=== PATIENT | male | born 1960 | race Caucasian/White ===

== ENCOUNTER 2017-06-12 22:27 | Emergency (ER) | payer MEDICAID ==
[2017-06-12 23:43] LABS: BASOPHIL % 0.3 % (0-2)
[2017-06-12 23:46] LABS: PLATELET COUNT 405 x10^3mcL (130-400); RED CELL DISTRIBUTION WIDTH 14.6 % (11.5-14.5)
[2017-06-12 23:48] LABS: CALCIUM 8.8 mg/dL (8.5-10.1); CARBON DIOXIDE 28.2 mmol/L (21-32); CHLORIDE SERUM 102 mmol/L (98-107); CREATININE SERUM 1.1 mg/dL (0.7-1.3); GFR1 > 60 mL/min; GLUCOSE SERUM 161 mg/dL (74-106); POTASSIUM SERUM 3.6 mmol/L (3.5-5.1); SODIUM SERUM 140 mmol/L (136-145)
[2017-06-12 23:52] LABS: ALBUMIN 3.3 g/dL (3.4-5.0); ALKALINE PHOSPHATASE 104 U/L (46-116); ALT/SGPT 43 U/L (16-63); AMYLASE 82 U/L (25-115); AST/SGOT 23 U/L (15-37); BILIRUBIN TOTAL 0.1 mg/dL (0.20-1.00); LIPASE 156 IU/L (73-393); TOTAL PROTEIN, SERUM 7.4 g/dL (6.4-8.2)
[2017-06-13 01:25] VITALS: BP 114/64
== END 2017-06-13 01:25 | disposition home or self-care (01) ==
LOC: ED 22:27
PROVIDERS: Emergency Medicine
DX: R10.12 Left upper quadrant pain (principal); I10 Essential (primary) hypertension; E78.00 Pure hypercholesterolemia, unspecified; Z88.0 Allergy status to penicillin
CPT/HCPCS: 83880; J1885

== ENCOUNTER 2017-09-17 06:44 | Emergency (ER) | payer MEDICAID ==
[~2017-09-17] VITALS: Ht 177.8 cm; Wt 110.7 kg
[2017-09-17 06:45] VITALS: Ht 177.8 cm; Wt 110.7 kg
[2017-09-17 10:12] VITALS: BP 148/90
== END 2017-09-17 10:12 | disposition home or self-care (01) ==
LOC: ED 06:44
DX: K12.2 Cellulitis and abscess of mouth (principal); E78.00 Pure hypercholesterolemia, unspecified; J02.9 Acute pharyngitis, unspecified

== ENCOUNTER 2018-11-02 06:02 | Emergency (ER) | payer MEDICAID ==
[~2018-11-02] VITALS: Ht 177.8 cm; Wt 101.8 kg
[2018-11-02 06:09] VITALS: Ht 177.8 cm; Wt 101.8 kg
[2018-11-02 07:06] LABS: BASOPHIL % 0.7 % (0-2); PLATELET COUNT 349 x10^3mcL (130-400)
[2018-11-02 07:27] LABS: CALCIUM 8.8 mg/dL (8.5-10.1); CARBON DIOXIDE 27.5 mmol/L (21-32); CHLORIDE SERUM 106 mmol/L (98-107); CREATININE SERUM 1.3 mg/dL (0.7-1.3); GFR1 > 60 mL/min; GLUCOSE SERUM 112 mg/dL (74-106); SODIUM SERUM 143 mmol/L (136-145)
[2018-11-02 07:35] LABS: T3 TOTAL 1.33 ng/mL
[2018-11-02 07:41] LABS: CK-MB 0.6 ng/mL (0-3.6); FREE T4 0.91 ng/dL (0.76-1.46); FREE THYROXINE INDEX 2.7 ug/dL (1.4-4.5); T4(THYROXINE) 8.1 ug/dL (4.7-13.3)
[2018-11-02 07:42] LABS: ALBUMIN 3.5 g/dL (3.4-5.0); ALKALINE PHOSPHATASE 99 U/L (46-116); ALT/SGPT 31 U/L (16-63); AST/SGOT 18 U/L (15-37); BILIRUBIN TOTAL 0.1 mg/dL (0.20-1.00); C REACTIVE PROTEIN 0.4 mg/dL (<=0.9)
[2018-11-02 09:11] LABS: ERYTHROCYTE SED RATE 18 mm/hr (0-20)
[2018-11-02 09:56] VITALS: BP 125/65
== END 2018-11-02 09:56 | disposition home or self-care (01) ==
LOC: ED 06:02
PROVIDERS: Specialist
DX: J10.1 Influenza due to other identified influenza virus with other respiratory manifestations (principal); E86.0 Dehydration; J20.9 Acute bronchitis, unspecified; I10 Essential (primary) hypertension; E78.00 Pure hypercholesterolemia, unspecified; Z88.0 Allergy status to penicillin
CPT/HCPCS: 36600; 84439; 87804; J0456; J2930; J7030; J7613; J7644; Q0092

== ENCOUNTER 2018-11-07 01:50 | Emergency (ER) | payer MEDICAID ==
[~2018-11-07] VITALS: Ht 177.8 cm; Wt 102.1 kg
[2018-11-07 01:58] VITALS: Ht 177.8 cm; Wt 102.1 kg
[2018-11-07 04:42] VITALS: BP 110/77
== END 2018-11-07 04:47 | disposition home or self-care (01) ==
LOC: ED 01:50
DX: J20.9 Acute bronchitis, unspecified (principal); I10 Essential (primary) hypertension; E78.00 Pure hypercholesterolemia, unspecified; Z88.0 Allergy status to penicillin
CPT/HCPCS: 87804; J2930; J7620; Q0092

== ENCOUNTER 2018-12-28 04:05 | Inpatient (IN) | payer MEDICAID ==
[~2018-12-28] VITALS: Ht 177.8 cm; Wt 102.7 kg
[2018-12-28 04:07] VITALS: Ht 177.8 cm; Wt 102.7 kg
[2018-12-28 04:39] LABS: BASOPHIL % 0.7 % (0-2); PLATELET COUNT 355 x10^3mcL (130-400)
[2018-12-28 04:40] LABS: RED CELL DISTRIBUTION WIDTH 14.6 % (11.5-14.5)
[2018-12-28 05:13] LABS: microscopic required? NO
[2018-12-28 05:13] LABS: CARBON DIOXIDE 28.8 mmol/L (21-32); CHLORIDE SERUM 103 mmol/L (98-107); CREATININE SERUM 1.1 mg/dL (0.7-1.3); GFR1 > 60 mL/min; GLUCOSE SERUM 118 mg/dL (74-106); POTASSIUM SERUM 3.8 mmol/L (3.5-5.1); SODIUM SERUM 140 mmol/L (136-145)
[2018-12-28 05:17] LABS: ALBUMIN 3.8 g/dL (3.4-5.0); ALKALINE PHOSPHATASE 105 U/L (46-116); ALT/SGPT 36 U/L (16-63); AST/SGOT 18 U/L (15-37); BILIRUBIN TOTAL 0.16 mg/dL (0.20-1.00); LIPASE 147 IU/L (73-393); TOTAL PROTEIN, SERUM 7.4 g/dL (6.4-8.2)
[2018-12-28 05:34] LABS: urine erythrocyte NEGATIVE (NEGATIVE)
[2018-12-28] MEDS ORDERED: LISINOPRIL2.5 MG PO (06:04)
[2018-12-28] MEDS ORDERED: PRA40 PO (06:06)
[2018-12-28] MEDS ORDERED: CLARITIN10 MG PO (06:06)
[2018-12-28] MEDS ORDERED: [UNRECOGNIZED DRUG - OTHER] (06:06)
[2018-12-28] MEDS ORDERED: PROTONIX20 MG PO (06:06)
[2018-12-28 08:02] LABS: MAGNESIUM 2.3 mg/dL (1.8-2.4)
[2018-12-28 08:08] LABS: CHOLESTEROL/HDL RATIO 3.9
[2018-12-28 09:52] LABS: FREE T4 0.8 ng/dL (0.76-1.46); FREE THYROXINE INDEX 2.6 ug/dL (1.4-4.5); T4(THYROXINE) 7.7 ug/dL (4.7-13.3)
[2018-12-28 10:02] VITALS: BP 117/71
[2018-12-28 11:50] LABS: T3 TOTAL 1.37 ng/mL
[2018-12-28 12:17] VITALS: BP 123/80
[2018-12-28 15:49] LABS: AMPHETAMINE QUAL UR NONE DETECTED (See below)
[2018-12-28 17:07] VITALS: BP 123/83
[2018-12-28 21:20] VITALS: BP 121/77
[2018-12-29 04:13] VITALS: BP 111/77
[2018-12-29 06:23] LABS: BASOPHIL % 0.4 % (0-2); PLATELET COUNT 328 x10^3mcL (130-400)
[2018-12-29 06:54] LABS: CALCIUM 8.6 mg/dL (8.5-10.1); CHLORIDE SERUM 106 mmol/L (98-107); CREATININE SERUM 0.9 mg/dL (0.7-1.3); GFR1 > 60 mL/min; GLUCOSE SERUM 113 mg/dL (74-106); SODIUM SERUM 142 mmol/L (136-145)
[2018-12-29 08:05] VITALS: BP 115/72
[2018-12-29] MEDS ORDERED: AMO250L8 PO (11:36)
[2018-12-29] MEDS ORDERED: BIAL PO (11:36)
[2018-12-29] MEDS ORDERED: GOOD SENSE OMEP20 MG PO (11:36)
[2018-12-29] MEDS ORDERED: FLA500 PO (11:36)
[2018-12-29 12:08] VITALS: BP 115/72
[2018-12-29 12:20] VITALS: BP 123/76
== END 2018-12-29 13:31 | disposition home or self-care (01) | DRG 241 ==
LOC: ED 04:05 → DU 06:06
PROVIDERS: Emergency Medicine; Internal Medicine Gastroenterology; ADMIT Family Medicine
PROC: 0DB78ZX Excision of Stomach, Pylorus, Via Natural or Artificial Opening Endoscopic, Diagnostic (ICD-10-PCS; principal; 2018-12-29 09:00)
PROC: 0DBF8ZZ Excision of Right Large Intestine, Via Natural or Artificial Opening Endoscopic (ICD-10-PCS; 2018-12-29 09:00)
DX: K29.00 Acute gastritis without bleeding (principal); A04.8 Other specified bacterial intestinal infections; K63.5 Polyp of colon; E66.9 Obesity, unspecified; K21.9 Gastro-esophageal reflux disease without esophagitis; I10 Essential (primary) hypertension
CPT/HCPCS: 43235; 45378; 84439; 85378; C9113; J0171; J1200; J1610; J2250; J2310; J2405; J2765; J3010; J3490

== ENCOUNTER 2019-06-01 02:44 | Emergency (ER) | payer MEDICAID ==
[~2019-06-01] VITALS: Ht 177.8 cm; Wt 102.5 kg
[~2019-06-01 02:44] MED LIST: AMO250L8 PO; BIAL PO; CLARITIN10 MG PO; FLA500 PO; GOOD SENSE OMEP20 MG PO; LISINOPRIL2.5 MG PO; PRA40 PO; PROTONIX20 MG PO; [UNRECOGNIZED DRUG - OTHER]
[2019-06-01 02:48] VITALS: Ht 177.8 cm; Wt 102.5 kg
[2019-06-01 05:04] VITALS: BP 123/62
== END 2019-06-01 05:04 | disposition home or self-care (01) ==
LOC: ED 02:44
DX: J44.1 Chronic obstructive pulmonary disease with (acute) exacerbation (principal); I10 Essential (primary) hypertension; K21.9 Gastro-esophageal reflux disease without esophagitis; Z88.0 Allergy status to penicillin
CPT/HCPCS: J7613

== ENCOUNTER 2019-07-21 07:06 | Emergency (ER) | payer MEDICAID ==
[~2019-07-21] VITALS: Ht 177.8 cm; Wt 103.9 kg
[2019-07-21 10:39] VITALS: BP 134/74
== END 2019-07-21 10:39 | disposition home or self-care (01) ==
LOC: ED 07:06
DX: J40 Bronchitis, not specified as acute or chronic (principal); J11.1 Influenza due to unidentified influenza virus with other respiratory manifestations; I10 Essential (primary) hypertension; E78.00 Pure hypercholesterolemia, unspecified; K21.9 Gastro-esophageal reflux disease without esophagitis; Z88.0 Allergy status to penicillin
CPT/HCPCS: 87804; J2930; J7030; J7613; J7644; Q0092

== ENCOUNTER 2019-09-04 19:04 | Emergency (ER) | payer MEDICAID ==
[~2019-09-04] VITALS: Ht 170.2 cm; Wt 100.7 kg
[2019-09-04 19:31] VITALS: Ht 170.2 cm; Wt 100.7 kg
[2019-09-04 20:56] LABS: BASOPHIL % 0.3 % (0-2); PLATELET COUNT 358 x10^3mcL (130-400)
[2019-09-04 20:57] LABS: RED CELL DISTRIBUTION WIDTH 14.6 % (11.5-14.5)
[2019-09-04 21:11] LABS: CALCIUM 9.2 mg/dL (8.5-10.1); CREATININE SERUM 1.3 mg/dL (0.7-1.3); POTASSIUM SERUM 4.7 mmol/L (3.5-5.1)
[2019-09-04 21:15] LABS: ALBUMIN 4.2 g/dL (3.4-5.0); BILIRUBIN TOTAL 0.4 mg/dL (0.20-1.00)
[2019-09-04 21:19] LABS: TOTAL PROTEIN, SERUM 8.5 g/dL (6.4-8.2)
[2019-09-04 23:00] VITALS: BP 111/66
== END 2019-09-04 23:00 | disposition home or self-care (01) ==
LOC: ED 19:04
PROVIDERS: Emergency Medicine
DX: K52.9 Noninfective gastroenteritis and colitis, unspecified (principal); I10 Essential (primary) hypertension; E11.9 Type 2 diabetes mellitus without complications; E78.00 Pure hypercholesterolemia, unspecified; K21.9 Gastro-esophageal reflux disease without esophagitis; Z88.0 Allergy status to penicillin
CPT/HCPCS: J1885; J2405; J7030

== ENCOUNTER 2019-09-22 01:46 | Emergency (ER) | payer MEDICAID ==
[~2019-09-22] VITALS: Ht 172.7 cm; Wt 104.3 kg
[2019-09-22 01:56] VITALS: Ht 172.7 cm; Wt 104.3 kg
[2019-09-22 05:22] VITALS: BP 136/84
== END 2019-09-22 05:22 | disposition home or self-care (01) ==
LOC: ED 01:46
DX: J20.9 Acute bronchitis, unspecified (principal); I10 Essential (primary) hypertension; E11.9 Type 2 diabetes mellitus without complications; E78.00 Pure hypercholesterolemia, unspecified; K21.9 Gastro-esophageal reflux disease without esophagitis; Z88.0 Allergy status to penicillin
CPT/HCPCS: J7620; Q0092

== ENCOUNTER 2019-09-28 04:59 | Inpatient (IN) | payer MEDICAID ==
[~2019-09-28] VITALS: Ht 177.8 cm; Wt 104.8 kg
[2019-09-28 05:03] VITALS: Ht 177.8 cm; Wt 104.8 kg
--- NOTE | 2019-09-28 05:10 | NUR ---
PT PRESENTS TO ED WITH C/C COUGH X7 DAYS. SOB WORSENING THE PAST 2 DAYS. PT STS COUGH IS PROD WITH CLEAR SPUTUM. DENIES FEVER. DENIES OTHER SYMPTOMS. AUDIBLE WHEEZING AND KITA EXP WHEEZING NOTED. CONNECTED TO FULL MONITOR. BREATHING TX ORDERED. AWAITING MSE.
--- NOTE | 2019-09-28 05:23 | NUR ---
XRAY AT BEDSIDE.
--- NOTE | 2019-09-28 06:15 | NUR ---
DR LARKIN AT BEDSIDE FOR MSE.
[2019-09-28 06:49] LABS: CALCIUM 8.7 mg/dL (8.5-10.1); CARBON DIOXIDE 30.6 mmol/L (21-32); CHLORIDE SERUM 103 mmol/L (98-107); GFR1 > 60 mL/min; GLUCOSE SERUM 124 mg/dL (74-106); POTASSIUM SERUM 3.5 mmol/L (3.5-5.1); SODIUM SERUM 138 mmol/L (136-145)
[2019-09-28 06:53] LABS: BASOPHIL % 0.8 % (0-2); PLATELET COUNT 306 x10^3mcL (130-400)
[2019-09-28 06:55] LABS: ALBUMIN 3.7 g/dL (3.4-5.0); ALKALINE PHOSPHATASE 96 U/L (46-116); ALT/SGPT 33 U/L (16-63); AST/SGOT 17 U/L (15-37); BILIRUBIN TOTAL 0.3 mg/dL (0.20-1.00); RED CELL DISTRIBUTION WIDTH 14.6 % (11.5-14.5); TOTAL PROTEIN, SERUM 7.2 g/dL (6.4-8.2)
--- NOTE | 2019-09-28 07:32 | NUR ---
AZITHRAMYCIN IVPB STARTED PER MD ORDER.
--- NOTE | 2019-09-28 09:20 | NUR ---
PT WAS ADMITED TO [facility]. REPORT WAS CALLED AND GIVEN TO WARREN MAE
--- NOTE | 2019-09-28 10:20 | NUR ---
RECEIVED PATIENT VIA GUERNEY, ACCOMPANIED BY NURSE. PATIENT ABLE TO AMBULATE TO BED WITH NO DIFFICULTY. NO RESP DISTRESS NOTED. NO SOB NOTED. WHEEZING AND FINE CRACKLES NOTED WHEN PATIENT DEEP BREATHES. REMAINS ON ROOM AIR. DENIES HEADACHE. PERRL. AAOX4. NO COMPLAINTS OF PAIN AT THIS TIME. DENIES CHEST PAIN OR PRESSURE. NORMOACTIVE BOWELSOUNDS. DENIES DYSURIA, CONSTIPATION, DIARRHEA. DENIES N/V/D. NO EDEMA NOTED. NO WOUNDS NOTED. PULSES PRESENT AND PALPABLE TO RADIAL AND PEDAL. CAP REFILL LESS THAN 3 SECS. PER PATIENT, HE FEELS TINGLING/NUMBNESS TO BILATERAL TOES, BUT IS NOT NEW ONSET. HE STATES THAT IT IS WORSE WHEN IT IS COLD. VITAL SIGNS STABLE. SAFETY PRECAUTION IN PLACE. CALL LIGHT WITHIN REACH. WILL CONTINUE TO MONITOR.
[2019-09-28 11:26] VITALS: BP 121/61
--- NOTE | 2019-09-28 12:30 | NUR ---
PATIENT IN BED, EATING LUNCH. [facility] PROVIDED EDUCATION ABOUT DIABETIC DIET. PATIENT AND VERBALIZED UNDERSTANDING. PT STABLE. NO ACUTE RESP DISTRESS NOTED. NO C/O PAIN AT THIS TIME. IV INTACT AND PATENT. CALL LIGHT WITHIN REACH. SAFETY PRECAUTION IN PLACE. WILL CONTINUE TO MONITOR.
[2019-09-28 14:00] VITALS: BP 126/64
[2019-09-28 14:04] VITALS: BP 149/82
--- NOTE | 2019-09-28 15:15 | NUR ---
PATIENT IN BED, WATCHING TV. PT STABLE. NO ACUTE RESP DISTRESS NOTED. NO C/O PAIN AT THIS TIME. IV INTACT AND PATENT. NO INFILTRATION OR REDNESS NOTED. CALL LIGHT WITHIN REACH. SAFETY PRECAUTION IN PLACE. WILL CONTINUE TO MONITOR.
[2019-09-28 17:01] VITALS: BP 125/70
--- NOTE | 2019-09-28 18:10 | NUR ---
PATIENT IN BED, WATCHING TV. PT STABLE. NO ACUTE RESP DISTRESS NOTED. NO C/O PAIN AT THIS TIME. IV INTACT AND PATENT. NO INFILTRATION OR REDNESS NOTED. CALL LIGHT WITHIN REACH. SAFETY PRECAUTION IN PLACE. FAMILY AT BEDSIDE. WILL ENDORSE CARE TO RN BONE MARROW TRANSPLANT NURSE.
--- NOTE | 2019-09-28 19:42 | NUR ---
RECEIVED PATIENT IN BED AWAKE, ALERT AND ORIENTED WITH NO SIGN OF ACUTE RESPIRATORY DISTRESS. BREATHING EASY AND NONLABOR SATTING AT 97% RA. WHEEZING WITH FINE CRACKLES NOTED. TELE#21 NSR ON MONITOR DENIES CHEST DISCOMFORT. IV TO LH INTACT AND INFUSING WELL. WILL CONTINUE TO MONITOR. CALL LIGHT WITHIN REACH.
[2019-09-28 20:33] VITALS: BP 116/66
--- NOTE | 2019-09-28 21:15 | NUR ---
DAUGHTER CAME TO THE NURSES STATION ASKING FOR THE RESULT OF CXR TAKEN THIS MORNING. CALLED RADIOLOGY SPOKE TO OMKAR TO FOLLOW UP READING OF CXR. SHE WILL CALL ME BACK ONCE RESULT IS FAXED. DR HUYNH MADE AWARE OF ABOVE CONCERN, HE WILL TALK TO THE FAMILY ONCE CXR RESULT IS IN. PER DAUGHTER SHE WANTED TO TAKE HER DAD TO OTHER HOSPITAL.
--- NOTE | 2019-09-28 22:45 | NUR ---
DR HUYNH IN PATIENT ROOM THIS TIME ADDRESSING DAUGHTER'S CONCERN REGARDING CHEST XRAY RESULT AND HER PLAN TO TRANSFER HER FATHER TO [facility].
[2019-09-29 05:06] VITALS: BP 119/70
--- NOTE | 2019-09-29 05:22 | NUR ---
CHECKED AT INTERVALS FOR NEEDS AND SAFETY. ALL NEEDS ATTENDED. NO SIGNIFICANT CHANGES IN CONDITION NOTED.
[2019-09-29 06:17] LABS: CALCIUM 8.8 mg/dL (8.5-10.1); CARBON DIOXIDE 27.2 mmol/L (21-32); CHLORIDE SERUM 106 mmol/L (98-107); CREATININE SERUM 0.9 mg/dL (0.7-1.3); GFR1 > 60 mL/min; GLUCOSE SERUM 162 mg/dL (74-106); POTASSIUM SERUM 4.6 mmol/L (3.5-5.1); SODIUM SERUM 139 mmol/L (136-145)
[2019-09-29 06:19] LABS: BASOPHIL % 0.1 % (0-2); PLATELET COUNT 311 x10^3mcL (130-400)
[2019-09-29 06:50] LABS: RED CELL DISTRIBUTION WIDTH 15.1 % (11.5-14.5)
--- NOTE | 2019-09-29 07:30 | NUR ---
RECEIVED HAND OFF REPORT FROM NIGHT NURSE. PATIENT LAYING SEMI-FOWLERS IN BED, AWAKE AND ALERT, NO COMPLAINTS OF PAIN. LUNGS SOUNDS DIMINISHED IN BASES, WITH WHEEZES HEARD THROUGHOUT, PRODUCTIVE COUGH THROUGHOUT NIGHT. TELE [address] ON PATIENT CHEST SHOWING SINUS TACHYCARDIA. ABD SOFT AND ROUND, NO PAIN REPORTED, BOWEL SOUNDS ACTIVE. NO WEAKNESS REPORTED. STATES HE OCCASIONALLY HAS TINGLING IN TOES. IV TO LEFT HAND INFUSING WELL, NO S/S OF INFILTRATION, NS @50. CALL LIGHT WITHIN REACH, WILL CONTIONUE TO MONITOR
[2019-09-29 09:25] VITALS: BP 126/66
--- NOTE | 2019-09-29 09:35 | NUR ---
HIREN EMERGING TECHNOLOGIES DIRECTOR, ROUNDED ON PATIENT AND UPDATED PATIENT ON PLAN OF CARE. PATIENT STATING THAT HE CHEST IS BURNING AFTER BREATHING TREATMENT. LUNGS SOUNDS IMPROVED, PATIENT HAD QUESTIONS ABOUT PRVIOUS STAYS IN HOSPITAL AND POTENTION GI ISSUES. ADVISED PATIENT TO CONSULT PCP TO MANAGE CARE. ADMINSTERED MEDICATION PER MAR. EDUCATED ON NEW MEDICATION, HEPARIN AND ANTIBIOTIC THERAPY. PATIENT UNDERSTANDING OF EDUCATION. CALL LIGHT WITHIN REACH, WILL CONTINUE TO MONITOR
--- NOTE | 2019-09-29 10:44 | NUR ---
TRANSFER ORDER TO [facility] IN CHART. REMOVED TELE 21 FROM PATIENT, TAKEN TO [facility] IN MONITOR ROOM. PROVIDED PATIENT WITH INSENTIVE SPIROMETER, PROVIDED EDUCATION ON USE, FREQUENCY OF USE, AND INDICATIONS. PATIENT DEMONSTRATED PROPER USE. BLOOD SUGAR CHECK WAS 282. PATIENT TO RECEIVE INSULIN PER STUDENT NURSE AND INSTRUCTOR. PAULIE HAD QUESTIONS ABOUT HIS BLOOD SUGAR LEVELS, STATING THAT HE WAS NEVER DIAGNOSED WITH DM BEFORE. SPOKE WITH ANDRIY QUINTANILLA AND NEW ORDERS IN FOR [facility] LAB DRAW. PATIENT AT [facility] AND PRESENT OF EDUCATION
--- NOTE | 2019-09-29 12:43 | NUR ---
PATIENT WAS ABLE TO SHOWER, LINENS CHANGED, WILLIAM RN WAS AT BEDSIDE TO OFFER DIABETIC TEACHING. PATIENT A1C RESULT WAS 6.5. EDUCATED PATIENT ABOUT POTENTIAL TREATMENTS. WILL INFORM HIREN OF RESULT TO PROCEED. PATIETN BLOOD GLUCOSE WAS 217. ADMINSTERED 6U REGULAR INSULIN PER SLIDING [employer]ALE FAMILY AT BEDSIDE FOR TEACHING. CALL LIGHT WITHIN REACH
[2019-09-29 12:53] VITALS: BP 113/57
--- NOTE | 2019-09-29 15:43 | NUR ---
Discount pharmacy card and list to low cost medical clinics given to patient by Darek Valero.
--- NOTE | 2019-09-29 16:25 | NUR ---
PATIENT LAYING BACK IN BED AT THIS TIME WITH FAMILY MEMBERS. IN GOOD SPIRITS, BREATHING REGULAR AND UNLABORED. COUGH STILL PRESENT. CALL LIGHT WITHIN REACH
[2019-09-29 16:26] VITALS: BP 123/67
[2019-09-29 19:30] VITALS: BP 107/66
--- NOTE | 2019-09-29 19:35 | NUR ---
GAVE HAND OFF REPORT TO NIGHT NURSEKAYA. PATIENT AWAKE AND ALERT, DAUGHTER AT BEDSIDE. ENDORSED CARE
--- NOTE | 2019-09-29 19:36 | NUR ---
RECEIVED PT AWAKE ALERT AND VERBALLY RESPONSIVE.BREATHING EASY AND NON-LABORED.O2 SAT @ 95% ROOMAIR WITH REPORTS OF ON AND OFF PRODUCTIVE COUGHING TO WHITISH PHLEGM.DENIES CHESTPAIN AT THIS TIME.BP 107/66 MMHG,HR 106.ENCOURAGED AND DEMONSTRATED PROPER USE OF INCENTIVE SPIROMETER AND ENCOURAGED ACTIVITY.SPOUSE AT BEDSIDE.WILL CONTINUE TO MONITOR.
--- NOTE | 2019-09-30 04:38 | NUR ---
PT SLEPT WELL ALL NIGHT.BREATHING EASY AND NON-LABORED WITH ON AND OFF COUGHING.BREATHING TX GIVEN BY RT ORDERED.ENCOURAGED TO USE INCENTIVE SPIROMETER.ON SOLUMEDROL IV Q6H.ALL NEEDS MET.WILL CONTINUE TO MONITOR.
[2019-09-30 05:44] VITALS: BP 112/72
--- NOTE | 2019-09-30 07:25 | NUR ---
RECEIVED PT FROM SHEETER HELPER. PT AWAKE, ALERT. A/OX4. PT ON ROOM AIR WITH NO RESP DISTRESS NOTED. IV ACCESS LEFT HAND. CDI INFUSING NS AT 50ML/HR. PERIPHERAL PULSES PALPABLE, NO EDEMA NOTED. ACTIVE BS NOTED. PT DENIES ISSUES WITH ELIMINATION AT THIS TIME. PT AMBULATORY, NO WEAKNESS NOTED. PT DENIES PAIN. PT REPORTS SOME COUGHING WITH MINIMAL CLEAR SPUTUM NOTED. SAFETY MEASURES IN PLACE, BED LOW AND LOCKED. CALL LIGHT WITHIN REACH.
[2019-09-30 09:00] VITALS: BP 114/65
--- NOTE | 2019-09-30 09:17 | NUR ---
DUE MEDICATIONS ADMINISTERED. PT TOLERATED WELL. NO ACUTE DISTRESS OR DISCOMFORT NOTED AT THIS TIME. SAFETY MAINTAINED.
[2019-09-30] MEDS ORDERED: ZITHROMAX TRI-500 MG PO (11:09)
[2019-09-30] MEDS ORDERED: PREDNISONE20 MG PO ×2 (11:11→11:12)
--- NOTE | 2019-09-30 11:30 | NUR ---
PT AMBULATING IN HALLWAY WITH NO ACUTE DISTRESS NOTED.
[2019-09-30 12:50] VITALS: BP 127/73
--- NOTE | 2019-09-30 14:40 | NUR ---
DISCHARGE INSTRUCTIONS/EDUCATION PROVIDED TO PATIENT AND FAMILY. PT TO FOLLOW UP WITH PCP. PT VERBALIZED UNDERSTANDING. IV ACCESS REMOVED WITH CATHETER INTACT. NO BLEEDING OR SWELLING NOTED. PT TO BE DISCHARGED HOME BY PRIVATE AUTO. SAFETY MAINTAINED.
== END 2019-09-30 14:50 | disposition home or self-care (01) | DRG 139 ==
LOC: ED 04:59 → DU 08:06 → MU 08:06 → DU 10:12 → MU 09-29 10:09
PROVIDERS: Emergency Medicine; ADMIT Internal Medicine
DX: J18.9 Pneumonia, unspecified organism (principal); J96.01 Acute respiratory failure with hypoxia; E66.2 Morbid (severe) obesity with alveolar hypoventilation; E11.9 Type 2 diabetes mellitus without complications; E78.5 Hyperlipidemia, unspecified; I10 Essential (primary) hypertension; K21.9 Gastro-esophageal reflux disease without esophagitis; Z68.33 Body mass index [BMI] 33.0-33.9, adult; Z79.84 Long term (current) use of oral hypoglycemic drugs
CPT/HCPCS: 82962; 87804; 90658; G0378; J0456; J1644; J2920; J7030; J7050; J7512; J7613; J7620; J7644; Q0092

== ENCOUNTER 2019-10-04 03:15 | Emergency (ER) | payer MEDICAID ==
[~2019-10-04] VITALS: Ht 177.8 cm; Wt 100.2 kg
[~2019-10-04 03:15] MED LIST changes: +PREDNISONE20 MG PO; +ZITHROMAX TRI-500 MG PO
[2019-10-04 03:20] VITALS: Ht 177.8 cm; Wt 100.2 kg
[2019-10-04 05:30] VITALS: BP 100/78
== END 2019-10-04 05:30 | disposition home or self-care (01) ==
LOC: ED 03:15
DX: J20.9 Acute bronchitis, unspecified (principal); I10 Essential (primary) hypertension; E11.9 Type 2 diabetes mellitus without complications; E78.00 Pure hypercholesterolemia, unspecified; K21.9 Gastro-esophageal reflux disease without esophagitis; Z88.0 Allergy status to penicillin
CPT/HCPCS: J1885

== ENCOUNTER 2020-01-22 03:43 | Emergency (ER) | payer MEDICAID ==
[~2020-01-22] VITALS: Ht 177.8 cm; Wt 95.7 kg
[2020-01-22 04:01] VITALS: Ht 177.8 cm; Wt 95.7 kg
[2020-01-22 06:56] VITALS: BP 108/73
== END 2020-01-22 06:56 | disposition home or self-care (01) ==
LOC: ED 03:43
DX: J06.9 Acute upper respiratory infection, unspecified (principal); I10 Essential (primary) hypertension; E11.9 Type 2 diabetes mellitus without complications; E78.00 Pure hypercholesterolemia, unspecified; K21.9 Gastro-esophageal reflux disease without esophagitis; Z20.828 Contact with and (suspected) exposure to other viral communicable diseases; Z88.0 Allergy status to penicillin
CPT/HCPCS: J7613; Q0092